=== PATIENT | male | born 1950 | race African-American/Black ===

== ENCOUNTER 2022-11-24 18:50 | Emergency (ER) | payer SELFPAY ==
[~2022-11-24] VITALS: Ht 175.3 cm; Wt 83.9 kg
[2022-11-24 18:57] VITALS: O2SAT 99
[2022-11-24 21:35] VITALS: BP 130/74; PULSE 88; RESP 18; TEMP 98.5
== END 2022-11-24 21:37 | disposition home or self-care (01) ==
LOC: ER 18:50
DX: M25.511 Pain in right shoulder (principal)
CPT/HCPCS: 73030; 99283